=== PATIENT | male | born 1960 | race Caucasian/White ===

== ENCOUNTER 2024-03-02 00:38 | Inpatient (IN) | payer OTHER, MEDICAID ==
[~2024-03-02] VITALS: Ht 188 cm; Wt 94.1 kg
[2024-03-02] VITALS (48 sets, daily range): BP systolic 69–164; BP diastolic 57–113; PULSE 49–73; RESP 18–20; TEMP 36.114–36.55848; O2SAT 96–100
[~2024-03-02 00:38] MED LIST: APIX5TAB MT; APIX5TAB PO; ATOR40TA70 MT; ATOR40TA70 PO; GABA-1180 MT; GABA-1180 PO; LEVO100T9 MT; LEVO150T8 MT; LEVO750T68 MT
[2024-03-02] MEDS: ETOMIDATE 2MG/ML 10ML VIAL IV ONE (00:49)
[2024-03-02] MEDS: SUCCINYLCHOLINE CHLORIDE 200MG/10ML IV ONE (00:49)
[2024-03-02] MEDS: NOREPINEPHRINE 8 MG in DEXT 5% WATER 242 ML IV PRN (01:18)
[2024-03-02] MEDS: NOREPINEPHRINE 8MG/250ML PMX 250 ML IV ONE (01:18)
[2024-03-02] MEDS: PROPOFOL 10MG/ML 100ML 100 ML IV ONE (01:19)
[2024-03-02 01:26] LABS: BASOPHILS % 0.3 % (0.0-2.0); HEMOGLOBIN. 13.4 g/dL (14.0-18.0); LYMPHOCYTES % 26.4 % (20.0-50.0); MEAN CORPUSCULAR HEMOGLOBIN 31.7 pg (28.0-32.0); MEAN CORPUSCULAR HGB CONC 32.6 g/dL (31.0-37.0); MEAN CORPUSCULAR VOLUME 97.2 fL (80.0-94.0); MEAN PLATELET VOLUME 7.8 fl (7.4-10.4); MONOCYTES % 14.4 % (2.0-8.0); NEUTROPHILS % 57.9 % (40.0-76.0); PLATELET 280 x1000/uL (130-400); RED BLOOD CELL COUNT 4.22 mill/uL (4.7-6.1); RED CELL DISTRIBUTION WIDTH 15.8 % (11.6-14.6); WHITE BLOOD COUNT 13.1 x1000/uL (4.5-11.0)
[2024-03-02 01:38] LABS: CHLORIDE 106 mEq/L (98-107); POTASSIUM 3.9 mEq/L (3.5-5.1); SODIUM 140 mEq/L (136-145)
[2024-03-02 01:39] LABS: CARBON DIOXIDE 24 mEq/L (21-32)
[2024-03-02 01:44] LABS: GLUCOSE 101 mg/dL (70-105); UREA NITROGEN BLOOD 41 mg/dL (9-23)
[2024-03-02 01:45] LABS: TROPONIN I HIGH SENSITIVITY 7 ng/L (3.0-53)
[2024-03-02 01:50] LABS: BG BASE EXCESS -7.5 mmol/L (-2.0-3.0); BG CARBOXYHEMOGLOBIN 0.8 % (0.5-1.5); BG DEOXYHEMOGLOBIN 0.2 % (0.0-5.0); BG FRACTION INSPIRED OXYGEN 100; BG HCO3 ACT 18.9 mmol/L (21.0-28.0); BG METHEMOGLOBIN 0.2 % (0.5-1.5); BG OXYGEN SATURATION 99.8 % (94.0-98.0); BG OXYHEMOGLOBIN 98.8 % (94.0-98.0); BG PCO2 41.5 mmHg (35.0-48.0); BG PH 7.276 (7.350-7.450); BG SAMPLE SITE RIGHT RADIAL; BG TOTAL HEMOGLOBIN 15.7 g/dL (13.5-17.5); BG VENT MODE VENT - AC
[2024-03-02 01:50] LABS: CREATININE 2.4 mg/dL (0.6-1.3); ETHANOL BLOOD < 10 mg/dL (<10)
[2024-03-02] MEDS ORDERED: MIDAZOLAM HCL 100 MG in DEXT 5% WATER 80 ML IV ONE (02:15)
[2024-03-02 03:37] LABS: CLARITY URINE CLEAR (CLEAR); COLOR URINE YELLOW (YELLOW); GLUCOSE URINE TRACE (NEGATIVE); KETONES URINE NEGATIVE (NEGATIVE); LEUKOCYTE ESTERASE URINE NEGATIVE (NEGATIVE); NITRITE URINE NEGATIVE (NEGATIVE); OCCULT BLOOD URINE TRACE (NEGATIVE); PROTEIN URINE 2+ (NEGATIVE); SPECIFIC GRAVITY URINE 1.009 (1.005-1.030); UROBILINOGEN URINE 0.2 E.U./dL (0.2-1.0)
[2024-03-02 03:49] LABS: *AMPHETAMINES SCREEN URINE PRESUMPTIVE POSITIVE (NEGATIVE); *BARBITURATES SCREEN URINE NEGATIVE (NEGATIVE); *BENZODIAZEPINES SCREEN URINE NEGATIVE (NEGATIVE); *COCAINE SCREEN URINE NEGATIVE (NEGATIVE); METHADONE URINE SCREEN NEGATIVE (NEGATIVE); OPIATES URINE SCREEN NEGATIVE (NEGATIVE); PHENCYCLIDINE URINE SCREEN NEGATIVE (NEGATIVE)
[2024-03-02 03:50] LABS: CANNABINOID URINE SCREEN PRESUMPTIVE POSITIVE (NEGATIVE); ECSTASY MDMA SCREEN URINE NEGATIVE (NEGATIVE)
[2024-03-02] MEDS: SODIUM CHLORIDE 0.9% 1,000 ML IV ONE (03:56)
[2024-03-02] MEDS ORDERED: IPRATROPIUM/ALBUTEROL 0.5-3(2.5)MG/3ML NEB HHN PRN (04:45)
[2024-03-02] MEDS ORDERED: DOCUSATE SODIUM 100MG CAPSULE PO PRN (04:45)
[2024-03-02] MEDS ORDERED: ACETAMINOPHEN 650MG SUPP PR PRN (04:45)
[2024-03-02] MEDS ORDERED: ONDANSETRON HCL 4MG/2ML INJ IV PRN (04:45)
[2024-03-02] MEDS ORDERED: GUAIFENESIN 200MG/10ML SUGAR FREE UDC PO PRN (04:45)
[2024-03-02 04:49] LABS: PARTIAL THROMBOPLASTIN TIME 28.5 sec (23.4-31.0); PROTHROMBIN TIME 10.8 sec (9.6-11.0)
[2024-03-02 05:48] LABS: RBC URINE 0-2 /hpf (0-2); SQUAMOUS EPITHELIAL CELL URINE NONE SEEN /lpf (RARE/1+); WBC URINE 0-2 /hpf (0-2)
[2024-03-02 05:49] LABS: BACTERIA URINE NONE SEEN
[2024-03-02] MEDS: NALOXONE HCL 1MG/ML 2ML VIAL IV ONE (05:49)
[2024-03-02] MEDS: SODIUM CHLORIDE 0.9% 1,000 ML IV NR (05:49)
[2024-03-02] MEDS: DEXT 5%/0.9% NACL 1,000 ML IV SCH (06:29)
[2024-03-02] MEDS: THIAMINE HCL 100 MG in SODIUM CHLORIDE 0.9% 49 ML IV NR (06:36)
[2024-03-02] MEDS ORDERED: PHENYLEPHRINE 50MG/250ML PMX 250 ML IV PRN (06:45)
[2024-03-02 07:11] LABS: TROPONIN I HIGH SENSITIVITY 15 ng/L (3.0-53)
[2024-03-02 07:12] LABS: LACTIC ACID 2.6 mmol/L (0.4-2.0)
[2024-03-02 07:13] LABS: CREATINE KINASE 129 IU/L (46-171); PHOSPHORUS 4.5 mg/dL (2.5-4.9)
[2024-03-02 07:15] LABS: T4 FREE 0.74 ng/dL (0.89-1.76); THYROID STIMULATING HORMONE 39.02 uIU/mL (0.55-4.78)
[2024-03-02] MEDS: MIDAZOLAM 100MG/100ML PREMIX IV PRN (07:15)
[2024-03-02 07:21] LABS: FOLIC ACID (FOLATE) SERUM 5.21 ng/mL (>5.38); VITAMIN B12 SERUM 181 pg/mL (211-911)
[2024-03-02] MEDS: PIPERACILLIN/TAZO 3.375G/50ML 50 ML IV SCH (07:37)
[2024-03-02] MEDS: PHENYLEPHRINE 50MG/250ML PMX 250 ML IV PRN (07:47)
[2024-03-02] MEDS ORDERED: VANCOMYCIN 1.5GM/250ML IV NR (08:00)
[2024-03-02] MEDS: INSULIN LISPRO 100 UNITS/ML SUBCUT SCH (08:20)
[2024-03-02] MEDS: VANCOMYCIN 1G PREMIX 200 ML IV SCH (08:50)
[2024-03-02] MEDS: BLOOD SUGAR DIAGNOSTIC STRIP TEST SCH (09:15)
[2024-03-02] MEDS: PANTOPRAZOLE SODIUM 40 MG/VIAL IV SCH (09:20)
[2024-03-02 09:32] LABS: HEMATOCRIT 49.8 % (42.0-52.0); HEMOGLOBIN 15.6 g/dL (14.0-18.0); MEAN CORPUSCULAR HEMOGLOBIN 31.2 pg (28.0-32.0); MEAN CORPUSCULAR HGB CONC 31.4 g/dL (31.0-37.0); MEAN CORPUSCULAR VOLUME 99.4 fL (80.0-94.0); PLATELET 278 x1000/uL (130-400); RED BLOOD CELL COUNT 5.01 mill/uL (4.7-6.1); RED CELL DISTRIBUTION WIDTH 16.6 % (11.6-14.6); WHITE BLOOD COUNT 14.8 x1000/uL (4.5-11.0)
[2024-03-02] MEDS: LEVOTHYROXINE SODIUM 100 MCG/ VIAL IV SCH (09:33)
[2024-03-02 09:39] LABS: CHLORIDE 107 mEq/L (98-107); POTASSIUM 4.2 mEq/L (3.5-5.1); SODIUM 140 mEq/L (136-145)
[2024-03-02 09:40] LABS: CALCIUM 8.7 mg/dL (8.7-10.4); CARBON DIOXIDE 24 mEq/L (21-32)
[2024-03-02 09:45] LABS: CREATININE 2.2 mg/dL (0.6-1.3); GLUCOSE 111 mg/dL (70-105); UREA NITROGEN BLOOD 32 mg/dL (9-23)
[2024-03-02 09:47] LABS: ALANINE AMINOTRANSFERASE 17 IU/L (10-49); ALBUMIN 3.8 g/dL (3.2-4.8); ASPARTATE AMINOTRANSFERASE 21 IU/L (<34); BILIRUBIN TOTAL 0.6 mg/dL (0.1-1.0); PHOSPHORUS 4.5 mg/dL (2.5-4.9); PROTEIN TOTAL 6.8 g/dL (6.0-8.3)
[2024-03-02] MEDS: PROPOFOL 10MG/ML 100ML 100 ML IV PRN ×2 (10:00→21:49)
[2024-03-02] MEDS ORDERED: NOREPINEPHRINE 8MG/250ML PMX 250 ML IV PRN (13:30)
[2024-03-02 13:53] LABS: BG BASE EXCESS -3.5 mmol/L (-2.0-3.0); BG DEOXYHEMOGLOBIN 2.1 % (0.0-5.0); BG FRACTION INSPIRED OXYGEN 40; BG HCO3 ACT 22.9 mmol/L (21.0-28.0); BG METHEMOGLOBIN 0.3 % (0.5-1.5); BG OXYGEN SATURATION 97.9 % (94.0-98.0); BG OXYHEMOGLOBIN 97.6 % (94.0-98.0); BG PCO2 46.2 mmHg (35.0-48.0); BG PH 7.314 (7.350-7.450); BG PO2 110.8 mmHg (83.0-108.0); BG SAMPLE SITE RIGHT RADIAL; BG TOTAL HEMOGLOBIN 16.4 g/dL (13.5-17.5); BG VENT MODE VENT - AC
[2024-03-02] MEDS ORDERED: PHENYLEPHRINE 50 MG in DEXT 5% WATER 245 ML IV PRN (14:30)
[2024-03-02] MEDS ORDERED: PROPOFOL 10MG/ML 100ML 100 ML IV PRN (14:30)
[2024-03-02] MEDS: PIPERACILLIN/TAZO 3.375G/100ML 100 ML IV SCH (14:55)
[2024-03-02] MEDS: CYANOCOBALAMIN 1000MCG/ML VIAL IM SCH (14:58)
[2024-03-02] MEDS ORDERED: VANCOMYCIN 1G PREMIX 200 ML IV SCH (15:00)
[2024-03-02] MEDS: MIDAZOLAM 100MG/100ML PMX 100 ML IV PRN (15:25)
[2024-03-02] MEDS: ENOXAPARIN 40MG/0.4ML SYR SUBCUT SCH (17:42)
[2024-03-02 18:24] LABS: TROPONIN I HIGH SENSITIVITY 18 ng/L (3.0-53)
[2024-03-02 18:25] LABS: CREATINE KINASE 84 IU/L (46-171)
[2024-03-03] VITALS (109 sets, daily range): BP systolic 85–146; BP diastolic 71–105; PULSE 61–96; RESP 11–22; TEMP 36.3918–36.72516; O2SAT 97–100
[2024-03-03 05:32] LABS: CARBON DIOXIDE 23 mEq/L (21-32); CHLORIDE 110 mEq/L (98-107); POTASSIUM 4.1 mEq/L (3.5-5.1); SODIUM 144 mEq/L (136-145)
[2024-03-03 05:33] LABS: CALCIUM 8.6 mg/dL (8.7-10.4)
[2024-03-03 05:38] LABS: CREATININE 1.6 mg/dL (0.6-1.3); GLUCOSE 86 mg/dL (70-105); UREA NITROGEN BLOOD 22 mg/dL (9-23)
[2024-03-03 05:54] LABS: HEMATOCRIT. 45.9 % (42.0-52.0); HEMOGLOBIN. 14.7 g/dL (14.0-18.0); MEAN CORPUSCULAR HEMOGLOBIN 32.2 pg (28.0-32.0); MEAN CORPUSCULAR HGB CONC 32.1 g/dL (31.0-37.0); MEAN CORPUSCULAR VOLUME 100.2 fL (80.0-94.0); MEAN PLATELET VOLUME 8.1 fl (7.4-10.4); PLATELET 229 x1000/uL (130-400); RED BLOOD CELL COUNT 4.58 mill/uL (4.7-6.1); RED CELL DISTRIBUTION WIDTH 16.4 % (11.6-14.6); WHITE BLOOD COUNT 12.2 x1000/uL (4.5-11.0)
[2024-03-03 07:57] LABS: DIFFERENTIAL COMMENT 1
[2024-03-03] MEDS: LIDOCAINE HCL 1% 10 MG/ML 10ML VIAL ONE (10:01)
[2024-03-03 10:44] LABS: BG BASE EXCESS -6.1 mmol/L (-2.0-3.0); BG CARBOXYHEMOGLOBIN 0.8 % (0.5-1.5); BG DEOXYHEMOGLOBIN 5.3 % (0.0-5.0); BG FRACTION INSPIRED OXYGEN 40; BG HCO3 ACT 18.5 mmol/L (21.0-28.0); BG METHEMOGLOBIN 0.3 % (0.5-1.5); BG OXYGEN SATURATION 94.6 % (94.0-98.0); BG OXYHEMOGLOBIN 93.6 % (94.0-98.0); BG PCO2 34.1 mmHg (35.0-48.0); BG PH 7.352 (7.350-7.450); BG PO2 70.7 mmHg (83.0-108.0); BG SAMPLE SITE RIGHT RADIAL; BG TOTAL HEMOGLOBIN 14.8 g/dL (13.5-17.5); BG VENT MODE VENT - AC
[2024-03-03] MEDS: DEXTROSE 50% WATER 50ML SYRINGE IV PRN (12:55)
[2024-03-03] MEDS ORDERED: PROPOFOL 10MG/ML 100ML 100 ML IV PRN (14:30)
[2024-03-03 15:50] LABS: PLATELET ESTIMATE NORMAL
[2024-03-03] MEDS: LEVOTHYROXINE SODIUM 100 MCG/ VIAL IV SCH (18:18)
[2024-03-03] MEDS ORDERED: PIPERACILLIN/TAZO 3.375G/50ML 50 ML IV SCH (22:00)
[2024-03-03] MEDS: PIPERACILLIN/TAZO 3.375G/100ML 100 ML IV NR (22:08)
[2024-03-04] VITALS (59 sets, daily range): BP systolic 106–163; BP diastolic 71–109; PULSE 68–134; RESP 9–25; TEMP 36.3918–37.05852; O2SAT 97–100
[2024-03-04] MEDS: LORAZEPAM 2MG/ML INJ IV PRN (01:04)
[2024-03-04] MEDS: PIPERACILLIN/TAZO 3.375G/50ML 50 ML IV SCH (05:22)
[2024-03-04 06:10] LABS: CHLORIDE 110 mEq/L (98-107)
[2024-03-04 06:11] LABS: CARBON DIOXIDE 22 mEq/L (21-32); POTASSIUM 3.5 mEq/L (3.5-5.1); SODIUM 142 mEq/L (136-145)
[2024-03-04 06:12] LABS: CALCIUM 8.6 mg/dL (8.7-10.4)
[2024-03-04 06:16] LABS: CREATININE 1.3 mg/dL (0.6-1.3)
[2024-03-04 06:17] LABS: UREA NITROGEN BLOOD 13 mg/dL (9-23)
[2024-03-04 06:19] LABS: PHOSPHORUS 2.2 mg/dL (2.5-4.9)
[2024-03-04 06:29] LABS: HEMATOCRIT 40.4 % (42.0-52.0); HEMOGLOBIN 13.3 g/dL (14.0-18.0); MEAN CORPUSCULAR HEMOGLOBIN 32.1 pg (28.0-32.0); MEAN CORPUSCULAR HGB CONC 32.9 g/dL (31.0-37.0); MEAN CORPUSCULAR VOLUME 97.5 fL (80.0-94.0); PLATELET 220 x1000/uL (130-400); RED BLOOD CELL COUNT 4.15 mill/uL (4.7-6.1); RED CELL DISTRIBUTION WIDTH 15.8 % (11.6-14.6)
[2024-03-04 06:41] LABS: GLUCOSE 100 mg/dL (70-105)
[2024-03-04] MEDS: MAGNESIUM 1 G PREMIX 100 ML IV NR (09:44)
[2024-03-04] MEDS: POTASSIUM-SODIUM PHOSPHATE POWDER PACKET NG NR (10:20)
[2024-03-04] MEDS ORDERED: LEVOTHYROXINE SODIUM 100 MCG/ VIAL IV SCH (11:00)
[2024-03-04 11:07] LABS: BG BASE EXCESS -2.6 mmol/L (-2.0-3.0); BG CARBOXYHEMOGLOBIN 0.8 % (0.5-1.5); BG DEOXYHEMOGLOBIN 0.9 % (0.0-5.0); BG FRACTION INSPIRED OXYGEN 40; BG HCO3 ACT 21.3 mmol/L (21.0-28.0); BG METHEMOGLOBIN 0.3 % (0.5-1.5); BG OXYGEN SATURATION 99.1 % (94.0-98.0); BG PCO2 34.6 mmHg (35.0-48.0); BG PH 7.408 (7.350-7.450); BG PO2 142.2 mmHg (83.0-108.0); BG SAMPLE SITE RIGHT RADIAL; BG TOTAL HEMOGLOBIN 13.7 g/dL (13.5-17.5); BG VENT MODE VENT - CPAP
[2024-03-05] VITALS: BP 130/76; PULSE 67; RESP 19; TEMP 36.61404; O2SAT 98
[2024-03-05 04:00] VITALS: BP 126/68; PULSE 84; RESP 20; TEMP 36.55848; O2SAT 96
[2024-03-05 08:00] VITALS: BP 101/71; PULSE 41; RESP 20; TEMP 37.16964; O2SAT 96
[2024-03-05 12:18] VITALS: BP 105/62; PULSE 45; RESP 18; TEMP 36.61404; O2SAT 97
[2024-03-05 16:33] VITALS: BP 110/60; PULSE 50; RESP 20; TEMP 36.55848; O2SAT 97
[2024-03-05 18:06] LABS: HEMATOCRIT 42.8 % (42.0-52.0); HEMOGLOBIN 14.2 g/dL (14.0-18.0); MEAN CORPUSCULAR HEMOGLOBIN 32.4 pg (28.0-32.0); MEAN CORPUSCULAR HGB CONC 33.3 g/dL (31.0-37.0); MEAN CORPUSCULAR VOLUME 97.4 fL (80.0-94.0); PLATELET 237 x1000/uL (130-400); RED BLOOD CELL COUNT 4.39 mill/uL (4.7-6.1); RED CELL DISTRIBUTION WIDTH 15.9 % (11.6-14.6); WHITE BLOOD COUNT 8.2 x1000/uL (4.5-11.0)
[2024-03-05 18:19] LABS: CHLORIDE 106 mEq/L (98-107); POTASSIUM 4.3 mEq/L (3.5-5.1); SODIUM 138 mEq/L (136-145)
[2024-03-05 18:20] LABS: CALCIUM 9.2 mg/dL (8.7-10.4); CARBON DIOXIDE 23 mEq/L (21-32)
[2024-03-05 18:25] LABS: CREATININE 1.4 mg/dL (0.6-1.3); GLUCOSE 85 mg/dL (70-105); UREA NITROGEN BLOOD 10 mg/dL (9-23)
[2024-03-05 18:27] LABS: PHOSPHORUS 2.6 mg/dL (2.5-4.9)
[2024-03-05 20:00] VITALS: BP 120/75; PULSE 69; RESP 18; TEMP 37.39188; O2SAT 97
[2024-03-06] VITALS: BP 108/54; PULSE 62; TEMP 37.16964; O2SAT 96
[2024-03-06 04:00] VITALS: BP 95/41; PULSE 49; RESP 18; TEMP 36.78072; O2SAT 96
[2024-03-06 07:35] LABS: BASOPHILS % 0.7 % (0.0-2.0); EOSINOPHILS % 4.4 % (0.0-5.0); HEMATOCRIT. 42.7 % (42.0-52.0); HEMOGLOBIN. 14.4 g/dL (14.0-18.0); LYMPHOCYTES % 27.2 % (20.0-50.0); MEAN CORPUSCULAR HEMOGLOBIN 32.6 pg (28.0-32.0); MEAN CORPUSCULAR HGB CONC 33.8 g/dL (31.0-37.0); MEAN CORPUSCULAR VOLUME 96.4 fL (80.0-94.0); MEAN PLATELET VOLUME 8.7 fl (7.4-10.4); MONOCYTES % 9.9 % (2.0-8.0); NEUTROPHILS % 57.8 % (40.0-76.0); PLATELET 251 x1000/uL (130-400); RED BLOOD CELL COUNT 4.42 mill/uL (4.7-6.1); RED CELL DISTRIBUTION WIDTH 15.7 % (11.6-14.6); WHITE BLOOD COUNT 7.8 x1000/uL (4.5-11.0)
[2024-03-06 07:38] LABS: CALCIUM 9.2 mg/dL (8.7-10.4)
[2024-03-06] MEDS ORDERED: LEVOTHYROXINE SODIUM 100MCG TABLET PO SCH (07:40)
[2024-03-06 07:42] LABS: CREATININE 1.4 mg/dL (0.6-1.3)
[2024-03-06 07:45] LABS: THYROID STIMULATING HORMONE 54.61 uIU/mL (0.55-4.78)
[2024-03-06 07:46] LABS: T4 FREE 0.78 ng/dL (0.89-1.76)
[2024-03-06 08:00] VITALS: BP 117/73; PULSE 62; RESP 18; TEMP 36.9474; O2SAT 98
[2024-03-06] MEDS: LEVOTHYROXINE SODIUM 150MCG TABLET PO SCH (08:53)
[2024-03-06 12:00] VITALS: BP 103/67; PULSE 65; RESP 16; TEMP 36.78072; O2SAT 98
[2024-03-06] MEDS ORDERED: LEVO750T68 PO (12:09)
[2024-03-06 13:49] VITALS: BP 103/67; PULSE 65; TEMP 98.2; O2SAT 98
[2024-03-07] MEDS ORDERED: FAMOTIDINE 20MG/2ML VIAL IV SCH (09:00)
== END 2024-03-06 14:20 | disposition home or self-care (01) | DRG 871 ==
LOC: ER 00:38 → MICUSO 03:39 → 7WST 03-04 22:13
PROVIDERS: ADMIT Internal Medicine; ATTEND Internal Medicine
PROC: 5A1945Z Respiratory Ventilation, 24-96 Consecutive Hours (ICD-10-PCS; principal; 2024-03-02)
PROC: 0BH18EZ Insertion of Endotracheal Airway into Trachea, Via Natural or Artificial Opening Endoscopic (ICD-10-PCS; 2024-03-02)
PROC: 02HV33Z Insertion of Infusion Device into Superior Vena Cava, Percutaneous Approach (ICD-10-PCS; 2024-03-03)
PROC: B548ZZA Ultrasonography of Superior Vena Cava, Guidance (ICD-10-PCS; 2024-03-03)
DX: A41.9 Sepsis, unspecified organism (principal); G92.8 Other toxic encephalopathy; J96.01 Acute respiratory failure with hypoxia; N17.0 Acute kidney failure with tubular necrosis; R65.21 Severe sepsis with septic shock; I13.0 Hypertensive heart and chronic kidney disease with heart failure and stage 1 through stage 4 chronic kidney disease, or unspecified chronic kidney disease; Z59.00 Homelessness unspecified; E87.20 Acidosis, unspecified; I50.22 Chronic systolic (congestive) heart failure; N18.9 Chronic kidney disease, unspecified; E11.22 Type 2 diabetes mellitus with diabetic chronic kidney disease; T50.905A Adverse effect of unspecified drugs, medicaments and biological substances, initial encounter; Z86.73 Personal history of transient ischemic attack (TIA), and cerebral infarction without residual deficits; J45.909 Unspecified asthma, uncomplicated; D53.9 Nutritional anemia, unspecified; D75.89 Other specified diseases of blood and blood-forming organs; E03.9 Hypothyroidism, unspecified; E53.8 Deficiency of other specified B group vitamins; F19.129 Other psychoactive substance abuse with intoxication, unspecified; E78.00 Pure hypercholesterolemia, unspecified; F15.10 Other stimulant abuse, uncomplicated; I25.10 Atherosclerotic heart disease of native coronary artery without angina pectoris; Z79.01 Long term (current) use of anticoagulants; Z79.899 Other long term (current) drug therapy; Z87.891 Personal history of nicotine dependence; Z91.148 Patient's other noncompliance with medication regimen for other reason; Z93.3 Colostomy status; Z95.5 Presence of coronary angioplasty implant and graft; M10.9 Gout, unspecified; S90.821A Blister (nonthermal), right foot, initial encounter; X58.XXXA Exposure to other specified factors, initial encounter; Y93.89 Activity, other specified; Y92.89 Other specified places as the place of occurrence of the external cause; Y99.8 Other external cause status; E11.649 Type 2 diabetes mellitus with hypoglycemia without coma; F15.129 Other stimulant abuse with intoxication, unspecified
CPT/HCPCS: 31500; 36415; 36573; 36600; 71045; 76770; 80048; 80053; 80305; 80320; 81003; 82375; 82550; 82607; 82746; 82805; 82962; 83605; 83735; 83880; 84100; 84145; 84439; 84443; 84484; 85025; 85027; 87070; 87077; 87186; 87426; 92610; 93005; 93306; 94002; 94003; 94070; 94640; 94664; 97161; 99285; C1725; J1650; J2060; J2250; J2310; J2470; J2543; J2704; J3370; J3411; J3420; J3475; J3490; J7030; J7060; G0480